=== PATIENT | male | born 1965 | race Caucasian/White ===

== ENCOUNTER 2021-02-22 13:24 | Inpatient (IN) ==
[2021-02-22] MEDS ORDERED: Naloxone 0.4 MG/ML INJ IVP PRN (22:49)
[2021-02-22] MEDS: 0.9 % Sodium Chloride 1,000 ML IVC SCH (23:26)
[2021-02-23 00:49] LABS: Basophils # 0.1 K/mcL (0.0-0.2); Basophils % 0.4 %; Eosinophils # 0.6 K/mcL (0.0-0.6); Eosinophils % 4.6 %; Hematocrit 30.7 % (37.5-50.1); Hemoglobin 10.1 g/dL (12.9-16.9); Immature Granulocytes % 0.9 % (0-4); Lymphocytes % 7.3 %; Mean Corpuscular HGB Conc 32.9 g/dL (31.6-35.5); Mean Corpuscular Hemoglobin 32.7 pg (28.0-33.3); Mean Corpuscular Volume 99.4 fL (83.0-100.0); Mean Platelet Volume 11.5 fL (9.4-12.4); Monocytes # 1.7 K/mcL (0.0-1.3); Monocytes % 11.8 %; Neutrophils # 10.5 K/mcL (1.6-8.9); Platelet Count 144 K/mcL (140-400); Red Blood Count 3.09 M/mcL (4.19-5.50); Red Cell Distribution Width 15.1 % (11.5-14.5)
[2021-02-23 01:06] LABS: Albumin/Globulin Ratio 0.8 (1.1-2.2); Bilirubin,Total 0.5 mg/dL (0.3-1.0); Calcium 8.3 mg/dL (8.6-10.3); Globulin 3.7 g/dL (2.4-3.5); Magnesium 2.3 mg/dL (1.6-2.6); Potassium 3.9 mEq/L (3.5-5.1); Total Protein 6.7 g/dL (6.4-8.9)
[2021-02-23] MEDS: Nicotine 21 MG PATCH.TD24 TD SCH ×2 (03:37→09:39)
[2021-02-23] MEDS: 0.9 % Sodium Chloride 1,000 ML IVC SCH (03:41)
[2021-02-23 05:33] LABS: Hematocrit 31.2 % (37.5-50.1); Hemoglobin 10.1 g/dL (12.9-16.9); Mean Corpuscular HGB Conc 32.4 g/dL (31.6-35.5); Mean Corpuscular Hemoglobin 32.4 pg (28.0-33.3); Mean Platelet Volume 12.1 fL (9.4-12.4); Platelet Count 149 K/mcL (140-400); Red Blood Count 3.12 M/mcL (4.19-5.50); Red Cell Distribution Width 14.9 % (11.5-14.5); White Blood Count 13.2 K/mcL (4.3-11.1)
[2021-02-23 05:49] LABS: Calcium 8.1 mg/dL (8.6-10.3)
[2021-02-23] MEDS ORDERED: Clindamycin 900 MG/50 ML 900 MG/50 ML IV.SOLN IVPB SCH (06:00)
[2021-02-23] MEDS: Clindamycin 900 MG/50 ML 900 MG/50 ML IV.SOLN IVPB SCH ×2 (09:39→20:27)
[2021-02-23] MEDS: Ondansetron ODT 4 MG TAB.RAPDIS SL PRN ×2 (12:17→23:45)
[2021-02-23 14:35] LABS: Bilirubin,Urine Negative (Negative); Blood,Urine Large (Negative); Clarity,Urine Turbid (Clear); Color,Urine Light-Orange (Yellow); Glucose,Urine (UA) Normal (Normal); Ketones,Urine Negative (Negative); Leukocyte Esterase,Urine Large (Negative); Nitrite,Urine Negative (Negative); Protein,Urine 100 mg/dL (Neg-Trace); RBC,Urine TNTC per hpf (0-3); Specific Gravity,Urine 1.011 (1.010-1.025); Urobilinogen,Urine Normal (Normal); WBC,Urine TNTC per hpf (0-3)
[2021-02-23 15:04] LABS: Protein/Creatinine Ratio,Urine 3.28 mg/mg (0.00-0.20); Sodium, Urine 88.6 mEq/L
[2021-02-23] MEDS ORDERED: Perflutren Lipid Microsphere 1.3 ML in 0.9 % Sodium Chloride 8.7 ML IVP PRN (18:04)
[2021-02-23] MEDS ORDERED: *HR* Metoprolol 5 MG/5 ML VIAL IVP ONE (18:15)
[2021-02-23] MEDS ORDERED: Prochlorperazine 10 MG/2 ML VIAL IVP ONE (18:24)
[2021-02-24 03:20] LABS: Hematocrit 36.1 % (37.5-50.1); Mean Corpuscular HGB Conc 32.7 g/dL (31.6-35.5); Mean Corpuscular Hemoglobin 32.4 pg (28.0-33.3); Mean Corpuscular Volume 99.2 fL (83.0-100.0); Mean Platelet Volume 11.8 fL (9.4-12.4); Platelet Count 195 K/mcL (140-400); Red Blood Count 3.64 M/mcL (4.19-5.50); Red Cell Distribution Width 14.5 % (11.5-14.5); White Blood Count 16.7 K/mcL (4.3-11.1)
[2021-02-24 03:22] LABS: Hemoglobin 11.8 g/dL (12.9-16.9)
[2021-02-24] MEDS ORDERED: Prochlorperazine 10 MG/2 ML VIAL IVP ONE (03:31)
[2021-02-24 03:52] LABS: Calcium 8.9 mg/dL (8.6-10.3)
[2021-02-24 03:53] LABS: Phosphorous 5.1 mg/dL (2.7-4.5); Uric Acid 4.4 mg/dL (2.3-7.6)
[2021-02-24 04:06] LABS: Thyroid Stimulating Hormone 3.598 mcIU/mL (0.340-5.600)
[2021-02-24 04:07] LABS: Vitamin D 25 Hydroxy 37 ng/mL (30-80)
[2021-02-24 04:08] LABS: Vitamin B12 > 1500 pg/mL (250-1100)
[2021-02-24 05:09] LABS: Hepatitis B Surface Antigen Nonreactive (Nonreactive)
[2021-02-24 05:38] LABS: Hepatitis C Virus Antibody Nonreactive (Nonreactive)
[2021-02-24 05:39] LABS: Hepatitis A Antibody IgM Nonreactive (Nonreactive); Hepatitis B Core IgM Nonreactive (Nonreactive)
[2021-02-24] MEDS ORDERED: 0.9 % Sodium Chloride 1,000 ML ONE (08:02)
[2021-02-24] MEDS: Clindamycin 900 MG/50 ML 900 MG/50 ML IV.SOLN IVPB SCH (10:05)
[2021-02-24] MEDS: Nicotine 21 MG PATCH.TD24 TD SCH (10:06)
[2021-02-24] MEDS ORDERED: cefTRIAXone 1,000 MG in 0.9 % Sodium Chloride Mini Bag 100 ML IVPB SCH (14:00)
[2021-02-24] MEDS ORDERED: amLODIPine 5 MG TABLET PO SCH (14:00)
[2021-02-24] MEDS: Ondansetron ODT 4 MG TAB.RAPDIS SL PRN (15:24)
[2021-02-24] MEDS: *HR* Heparin 5,000 UNIT/ML VIAL SQ SCH (15:28)
[2021-02-24] MEDS: (Hydromorphone (Pf) [Hydromorphone Intrathecal Pump] TP SCH (15:33)
[2021-02-24] MEDS: Doxycycline 100 MG in 0.9 % Sodium Chloride Mini Bag 100 ML IVPB SCH (17:10)
[2021-02-24] MEDS: *HR* HYDROcodone/Acet 5/325 mg TABLET PO PRN (20:39)
[2021-02-24] MEDS: Melatonin 3 MG TABLET PO PRN (20:39)
[2021-02-25 02:00] LABS: Hematocrit 32.5 % (37.5-50.1); Hemoglobin 10.4 g/dL (12.9-16.9); Mean Corpuscular Hemoglobin 31.4 pg (28.0-33.3); Mean Corpuscular Volume 98.2 fL (83.0-100.0); Mean Platelet Volume 11.9 fL (9.4-12.4); Platelet Count 147 K/mcL (140-400); Red Blood Count 3.31 M/mcL (4.19-5.50); Red Cell Distribution Width 13.9 % (11.5-14.5); White Blood Count 13.2 K/mcL (4.3-11.1)
[2021-02-25 02:14] LABS: Calcium 8.4 mg/dL (8.6-10.3); Potassium 3.4 mEq/L (3.5-5.1)
[2021-02-25] MEDS: Prochlorperazine 10 MG/2 ML VIAL IVP PRN (02:18)
[2021-02-25] MEDS: *HR* Heparin 5,000 UNIT/ML VIAL SQ SCH ×2 (02:25→06:50)
[2021-02-25] MEDS: Doxycycline 100 MG in 0.9 % Sodium Chloride Mini Bag 100 ML IVPB SCH (05:25)
[2021-02-25] MEDS: ARIPiprazole 10 MG TABLET PO SCH (09:32)
[2021-02-25] MEDS: Nicotine 21 MG PATCH.TD24 TD SCH (09:32)
[2021-02-25] MEDS ORDERED: Sennosides/Docusate Sodium TABLET PO PRN (10:21)
[2021-02-25] MEDS: Sennosides/Docusate Sodium TABLET PO SCH ×3 (12:19→21:44)
[2021-02-25] MEDS: (Hydromorphone (Pf) [Hydromorphone Intrathecal Pump] TP SCH (12:20)
[2021-02-25] MEDS: Famotidine 20 MG/2 ML VIAL IVP SCH (16:44)
[2021-02-25] MEDS: Ondansetron ODT 4 MG TAB.RAPDIS SL PRN (21:35)
[2021-02-26] MEDS: Prochlorperazine 10 MG/2 ML VIAL IVP PRN ×2 (00:37→16:49)
[2021-02-26] MEDS: *HR* HYDROcodone/Acet 5/325 mg TABLET PO PRN ×2 (05:15→11:53)
[2021-02-26] MEDS: Melatonin 3 MG TABLET PO PRN (05:15)
[2021-02-26] MEDS: Famotidine 20 MG/2 ML VIAL IVP SCH (05:15)
[2021-02-26 06:25] LABS: Hematocrit 33.3 % (37.5-50.1); Hemoglobin 10.7 g/dL (12.9-16.9); Mean Corpuscular HGB Conc 32.1 g/dL (31.6-35.5); Mean Corpuscular Hemoglobin 31.9 pg (28.0-33.3); Mean Corpuscular Volume 99.4 fL (83.0-100.0); Mean Platelet Volume 12.4 fL (9.4-12.4); Platelet Count 155 K/mcL (140-400); Red Blood Count 3.35 M/mcL (4.19-5.50); Red Cell Distribution Width 13.6 % (11.5-14.5); White Blood Count 16.5 K/mcL (4.3-11.1)
[2021-02-26 06:52] LABS: Calcium 8.9 mg/dL (8.6-10.3); Potassium 3.6 mEq/L (3.5-5.1)
[2021-02-26] MEDS: Nicotine 21 MG PATCH.TD24 TD SCH (09:39)
[2021-02-26] MEDS: Sennosides/Docusate Sodium TABLET PO SCH ×2 (09:39→21:22)
[2021-02-26] MEDS: Acetaminophen 325 MG TABLET PO PRN (09:39)
[2021-02-26] MEDS: ARIPiprazole 10 MG TABLET PO SCH (09:39)
[2021-02-26] MEDS ORDERED: polyethylene glycoL 3350 17 GM POWD.PACK PO PRN (13:39)
[2021-02-26] MEDS: (Hydromorphone (Pf) [Hydromorphone Intrathecal Pump] TP SCH (15:02)
[2021-02-26] MEDS: Ondansetron ODT 4 MG TAB.RAPDIS SL PRN (15:05)
[2021-02-26] MEDS: diazePAM 10 MG TABLET PO SCH (21:22)
[2021-02-27] MEDS: Melatonin 3 MG TABLET PO PRN (03:39)
[2021-02-27] MEDS: *HR* HYDROcodone/Acet 5/325 mg TABLET PO PRN (03:39)
[2021-02-27 05:21] LABS: Basophils # 0.1 K/mcL (0.0-0.2); Basophils % 0.3 %; Eosinophils # 0.8 K/mcL (0.0-0.6); Eosinophils % 4.4 %; Hematocrit 34.2 % (37.5-50.1); Immature Granulocytes % 0.7 % (0-4); Lymphocytes # 1.4 K/mcL (0.6-4.6); Lymphocytes % 7.9 %; Mean Corpuscular HGB Conc 32.2 g/dL (31.6-35.5); Mean Corpuscular Hemoglobin 31.5 pg (28.0-33.3); Mean Platelet Volume 12.3 fL (9.4-12.4); Monocytes # 2.2 K/mcL (0.0-1.3); Neutrophils # 13.5 K/mcL (1.6-8.9); Platelet Count 172 K/mcL (140-400); Red Blood Count 3.49 M/mcL (4.19-5.50); Red Cell Distribution Width 13.3 % (11.5-14.5); Segmented Neutrophils % 74.7 %; White Blood Count 18.1 K/mcL (4.3-11.1)
[2021-02-27 05:36] LABS: Albumin 3.5 g/dL (3.5-5.7); Albumin/Globulin Ratio 0.9 (1.1-2.2); Bilirubin,Total 0.6 mg/dL (0.3-1.0); Calcium 8.8 mg/dL (8.6-10.3); Potassium 3.6 mEq/L (3.5-5.1); Total Protein 7.5 g/dL (6.4-8.9)
[2021-02-27] MEDS: Sennosides/Docusate Sodium TABLET PO SCH ×2 (07:33→20:42)
[2021-02-27] MEDS: Ondansetron ODT 4 MG TAB.RAPDIS SL PRN ×2 (07:33→20:42)
[2021-02-27] MEDS: diazePAM 10 MG TABLET PO SCH ×3 (07:33→20:42)
[2021-02-27] MEDS: ARIPiprazole 10 MG TABLET PO SCH (07:33)
[2021-02-27] MEDS: Nicotine 21 MG PATCH.TD24 TD SCH (07:37)
[2021-02-27] MEDS ORDERED: Famotidine 20 MG/2 ML VIAL IVP SCH (09:00)
[2021-02-27] MEDS: (Hydromorphone (Pf) [Hydromorphone Intrathecal Pump] TP SCH (14:16)
[2021-02-27 19:04] LABS: Basophils # 0.1 K/mcL (0.0-0.2); Basophils % 0.2 %; Eosinophils # 0.5 K/mcL (0.0-0.6); Eosinophils % 2.5 %; Hematocrit 37.2 % (37.5-50.1); Hemoglobin 11.7 g/dL (12.9-16.9); Lymphocytes # 1.7 K/mcL (0.6-4.6); Lymphocytes % 8.2 %; Mean Corpuscular HGB Conc 31.5 g/dL (31.6-35.5); Mean Corpuscular Hemoglobin 31.3 pg (28.0-33.3); Mean Corpuscular Volume 99.5 fL (83.0-100.0); Mean Platelet Volume 12.3 fL (9.4-12.4); Monocytes # 1.8 K/mcL (0.0-1.3); Monocytes % 8.5 %; Neutrophils # 16.5 K/mcL (1.6-8.9); Platelet Count 207 K/mcL (140-400); Red Blood Count 3.74 M/mcL (4.19-5.50); Red Cell Distribution Width 13.2 % (11.5-14.5); Segmented Neutrophils % 79.6 %; White Blood Count 20.8 K/mcL (4.3-11.1)
[2021-02-28] MEDS: Prochlorperazine 10 MG/2 ML VIAL IVP PRN (01:49)
[2021-02-28 03:41] LABS: Basophils # 0.1 K/mcL (0.0-0.2); Basophils % 0.3 %; Eosinophils # 0.6 K/mcL (0.0-0.6); Eosinophils % 3.5 %; Hematocrit 32.5 % (37.5-50.1); Hemoglobin 10.5 g/dL (12.9-16.9); Immature Granulocytes % 0.8 % (0-4); Lymphocytes # 1.4 K/mcL (0.6-4.6); Mean Corpuscular HGB Conc 32.3 g/dL (31.6-35.5); Mean Corpuscular Hemoglobin 31.8 pg (28.0-33.3); Mean Corpuscular Volume 98.5 fL (83.0-100.0); Mean Platelet Volume 12.5 fL (9.4-12.4); Monocytes % 11.2 %; Neutrophils # 13.6 K/mcL (1.6-8.9); Platelet Count 165 K/mcL (140-400); Red Cell Distribution Width 13.2 % (11.5-14.5); Segmented Neutrophils % 76.2 %; White Blood Count 17.9 K/mcL (4.3-11.1)
[2021-02-28 04:03] LABS: Potassium 3.9 mEq/L (3.5-5.1)
[2021-02-28 08:52] LABS: INR 1.3; Prothrombin Time 14.4 Seconds (9.4-12.1)
[2021-02-28 10:48] LABS: Source,Synovial Fluid Right Hip
[2021-02-28 11:23] LABS: Appearance,Synovial Fluid Hazy (Clear-Hazy); Color,Synovial Fluid Amber (Straw)
[2021-02-28] MEDS: Nicotine 21 MG PATCH.TD24 TD SCH (11:32)
[2021-02-28] MEDS: ARIPiprazole 10 MG TABLET PO SCH (11:32)
[2021-02-28] MEDS: Famotidine 20 MG TABLET PO SCH (11:32)
[2021-02-28] MEDS: Sennosides/Docusate Sodium TABLET PO SCH ×2 (11:32→20:54)
[2021-02-28] MEDS: diazePAM 10 MG TABLET PO SCH ×3 (11:33→20:54)
[2021-02-28] MEDS: *HR* HYDROcodone/Acet 5/325 mg TABLET PO PRN ×2 (17:13→23:07)
[2021-02-28] MEDS: (Hydromorphone (Pf) [Hydromorphone Intrathecal Pump] TP SCH (17:31)
[2021-02-28] MEDS: Acetaminophen 325 MG TABLET PO PRN (20:53)
[2021-02-28 22:32] LABS: Bilirubin,Urine Negative (Negative); Blood,Urine Moderate (Negative); Clarity,Urine Turbid (Clear); Color,Urine Light-Yellow (Yellow); Glucose,Urine (UA) Normal (Normal); Ketones,Urine Negative (Negative); Leukocyte Esterase,Urine Large (Negative); Mucus,Urine Few per lpf (None-Few); Nitrite,Urine Negative (Negative); Protein,Urine 70 mg/dL (Neg-Trace); RBC,Urine 50-100 per hpf (0-3); Specific Gravity,Urine 1.012 (1.010-1.025); Urobilinogen,Urine Normal (Normal); WBC,Urine 50-100 per hpf (0-3)
[2021-03-01] MEDS ORDERED: *HR* HYDROcodone/Acet 10/325 mg TABLET PO ONE (01:34)
[2021-03-01 06:12] LABS: Basophils # 0.1 K/mcL (0.0-0.2); Basophils % 0.3 %; Eosinophils # 0.5 K/mcL (0.0-0.6); Eosinophils % 2.5 %; Hemoglobin 10.6 g/dL (12.9-16.9); Immature Granulocytes % 0.8 % (0-4); Lymphocytes # 1.5 K/mcL (0.6-4.6); Lymphocytes % 7.3 %; Mean Corpuscular HGB Conc 32.1 g/dL (31.6-35.5); Mean Corpuscular Hemoglobin 31.5 pg (28.0-33.3); Mean Corpuscular Volume 98.2 fL (83.0-100.0); Mean Platelet Volume 12.4 fL (9.4-12.4); Monocytes # 2.2 K/mcL (0.0-1.3); Neutrophils # 15.6 K/mcL (1.6-8.9); Platelet Count 195 K/mcL (140-400); Red Blood Count 3.36 M/mcL (4.19-5.50); Red Cell Distribution Width 13.1 % (11.5-14.5); Segmented Neutrophils % 78.1 %
[2021-03-01 06:36] LABS: Calcium 9.1 mg/dL (8.6-10.3); Potassium 3.8 mEq/L (3.5-5.1)
[2021-03-01] MEDS: Nicotine 21 MG PATCH.TD24 TD SCH (09:06)
[2021-03-01] MEDS: diazePAM 10 MG TABLET PO SCH ×3 (09:06→21:20)
[2021-03-01] MEDS: *HR* HYDROcodone/Acet 5/325 mg TABLET PO PRN (09:06)
[2021-03-01] MEDS: ARIPiprazole 10 MG TABLET PO SCH (09:06)
[2021-03-01] MEDS: Sennosides/Docusate Sodium TABLET PO SCH ×2 (09:06→21:20)
[2021-03-01] MEDS: Famotidine 20 MG TABLET PO SCH (09:06)
[2021-03-01] MEDS: *HR* HYDROmorphone 2 MG TABLET PO PRN ×2 (11:38→23:37)
[2021-03-01] MEDS: (Hydromorphone (Pf) [Hydromorphone Intrathecal Pump] TP SCH (12:08)
[2021-03-01] MEDS: tiZANidine 4 MG TABLET PO SCH ×2 (14:38→21:19)
[2021-03-01] MEDS: Gabapentin 400 MG CAPSULE PO SCH ×2 (14:38→21:20)
[2021-03-01] MEDS: *HR* OxyCODONE/APAP 10/325 TABLET PO PRN (14:39)
[2021-03-01] MEDS: Topiramate 25 MG TABLET PO SCH (21:19)
[2021-03-02] MEDS: *HR* OxyCODONE/APAP 10/325 TABLET PO PRN ×3 (02:41→21:56)
[2021-03-02] MEDS: ARIPiprazole 10 MG TABLET PO SCH (07:37)
[2021-03-02] MEDS: *HR* HYDROcodone/Acet 5/325 mg TABLET PO PRN (07:37)
[2021-03-02] MEDS: Sennosides/Docusate Sodium TABLET PO SCH ×2 (07:37→20:20)
[2021-03-02] MEDS: Gabapentin 400 MG CAPSULE PO SCH ×3 (07:37→20:21)
[2021-03-02] MEDS: Cholecalciferol (D-3) 1,000 UNIT (25MCG) TABLET PO SCH (07:38)
[2021-03-02] MEDS: tiZANidine 4 MG TABLET PO SCH ×3 (07:38→20:21)
[2021-03-02] MEDS: Topiramate 25 MG TABLET PO SCH ×2 (07:38→20:21)
[2021-03-02] MEDS: diazePAM 10 MG TABLET PO SCH ×3 (07:38→20:21)
[2021-03-02] MEDS: Famotidine 20 MG TABLET PO SCH (07:38)
[2021-03-02] MEDS: Nicotine 21 MG PATCH.TD24 TD SCH (07:39)
[2021-03-02 07:46] LABS: Basophils # 0.1 K/mcL (0.0-0.2); Basophils % 0.3 %; Eosinophils # 0.8 K/mcL (0.0-0.6); Eosinophils % 4.2 %; Hemoglobin 10.5 g/dL (12.9-16.9); Immature Granulocytes % 0.6 % (0-4); Lymphocytes # 1.8 K/mcL (0.6-4.6); Mean Corpuscular HGB Conc 31.8 g/dL (31.6-35.5); Mean Corpuscular Hemoglobin 31.9 pg (28.0-33.3); Mean Corpuscular Volume 100.3 fL (83.0-100.0); Mean Platelet Volume 12.5 fL (9.4-12.4); Monocytes # 2.4 K/mcL (0.0-1.3); Monocytes % 12.1 %; Neutrophils # 14.8 K/mcL (1.6-8.9); Platelet Count 193 K/mcL (140-400); Red Blood Count 3.29 M/mcL (4.19-5.50); Red Cell Distribution Width 13.2 % (11.5-14.5); Segmented Neutrophils % 73.8 %
[2021-03-02 08:06] LABS: Calcium 8.6 mg/dL (8.6-10.3)
[2021-03-02] MEDS: *HR* HYDROmorphone 2 MG TABLET PO PRN ×2 (08:22→15:42)
[2021-03-02] MEDS: (Hydromorphone (Pf) [Hydromorphone Intrathecal Pump] TP SCH (13:15)
[2021-03-03] MEDS: *HR* HYDROcodone/Acet 5/325 mg TABLET PO PRN (02:38)
[2021-03-03 03:17] LABS: Basophils # 0.1 K/mcL (0.0-0.2); Basophils % 0.5 %; Eosinophils % 4.6 %; Hematocrit 31.3 % (37.5-50.1); Hemoglobin 9.9 g/dL (12.9-16.9); Immature Granulocytes % 0.7 % (0-4); Lymphocytes # 2.3 K/mcL (0.6-4.6); Lymphocytes % 10.6 %; Mean Corpuscular HGB Conc 31.6 g/dL (31.6-35.5); Mean Corpuscular Hemoglobin 31.7 pg (28.0-33.3); Mean Corpuscular Volume 100.3 fL (83.0-100.0); Mean Platelet Volume 12.6 fL (9.4-12.4); Monocytes # 2.5 K/mcL (0.0-1.3); Monocytes % 11.7 %; Neutrophils # 15.6 K/mcL (1.6-8.9); Platelet Count 228 K/mcL (140-400); Red Blood Count 3.12 M/mcL (4.19-5.50); Red Cell Distribution Width 13.2 % (11.5-14.5); Segmented Neutrophils % 71.9 %; White Blood Count 21.6 K/mcL (4.3-11.1)
[2021-03-03 03:33] LABS: Albumin 3.3 g/dL (3.5-5.7); Albumin/Globulin Ratio 0.9 (1.1-2.2); Bilirubin,Total 0.4 mg/dL (0.3-1.0); Calcium 8.6 mg/dL (8.6-10.3); Globulin 3.5 g/dL (2.4-3.5); Potassium 4.2 mEq/L (3.5-5.1); Total Protein 6.8 g/dL (6.4-8.9)
[2021-03-03] MEDS: *HR* OxyCODONE/APAP 10/325 TABLET PO PRN ×2 (05:03→16:50)
[2021-03-03] MEDS: Topiramate 25 MG TABLET PO SCH ×2 (09:54→21:06)
[2021-03-03] MEDS: Gabapentin 400 MG CAPSULE PO SCH (09:55)
[2021-03-03] MEDS: Sennosides/Docusate Sodium TABLET PO SCH ×2 (09:55→21:06)
[2021-03-03] MEDS: ARIPiprazole 10 MG TABLET PO SCH (09:55)
[2021-03-03] MEDS: Cholecalciferol (D-3) 1,000 UNIT (25MCG) TABLET PO SCH (09:55)
[2021-03-03] MEDS: diazePAM 10 MG TABLET PO SCH ×3 (09:55→21:06)
[2021-03-03] MEDS: Famotidine 20 MG TABLET PO SCH (09:56)
[2021-03-03] MEDS: Nicotine 21 MG PATCH.TD24 TD SCH (09:56)
[2021-03-03] MEDS: tiZANidine 4 MG TABLET PO SCH (09:56)
[2021-03-03] MEDS: Silver Sulfadiazine 50 GM TUBE TP SCH (09:59)
[2021-03-03] MEDS: *HR* HYDROmorphone 2 MG TABLET PO PRN ×2 (10:05→21:10)
[2021-03-03] MEDS ORDERED: tiZANidine 4 MG TABLET PO PRN (14:19)
[2021-03-03] MEDS: (Hydromorphone (Pf) [Hydromorphone Intrathecal Pump] TP SCH (16:46)
[2021-03-03] MEDS: Gabapentin 300 MG CAPSULE PO SCH ×2 (16:46→21:06)
[2021-03-03] MEDS: Melatonin 3 MG TABLET PO PRN (21:10)
[2021-03-04 00:34] LABS: Lambda Qnt Free Light Chains 41.31 mg/L (5.71-26.30)
[2021-03-04] MEDS: *HR* OxyCODONE/APAP 10/325 TABLET PO PRN ×2 (05:07→16:52)
[2021-03-04 05:19] LABS: Basophils # 0.1 K/mcL (0.0-0.2); Basophils % 0.2 %; Eosinophils # 0.6 K/mcL (0.0-0.6); Eosinophils % 2.7 %; Hematocrit 30.9 % (37.5-50.1); Immature Granulocytes % 0.6 % (0-4); Lymphocytes # 1.3 K/mcL (0.6-4.6); Lymphocytes % 5.6 %; Mean Corpuscular HGB Conc 32.4 g/dL (31.6-35.5); Mean Corpuscular Hemoglobin 33.2 pg (28.0-33.3); Mean Corpuscular Volume 102.7 fL (83.0-100.0); Mean Platelet Volume 12.4 fL (9.4-12.4); Monocytes # 2.4 K/mcL (0.0-1.3); Monocytes % 10.8 %; Neutrophils # 18.1 K/mcL (1.6-8.9); Platelet Count 233 K/mcL (140-400); Red Blood Count 3.01 M/mcL (4.19-5.50); Red Cell Distribution Width 13.2 % (11.5-14.5); Segmented Neutrophils % 80.1 %; White Blood Count 22.6 K/mcL (4.3-11.1)
[2021-03-04 05:38] LABS: Calcium 8.9 mg/dL (8.6-10.3); Potassium 4.4 mEq/L (3.5-5.1)
[2021-03-04] MEDS: Cholecalciferol (D-3) 1,000 UNIT (25MCG) TABLET PO SCH (08:57)
[2021-03-04] MEDS: Topiramate 25 MG TABLET PO SCH ×2 (08:57→21:09)
[2021-03-04] MEDS: Famotidine 20 MG TABLET PO SCH (08:58)
[2021-03-04] MEDS: Nicotine 21 MG PATCH.TD24 TD SCH (08:58)
[2021-03-04] MEDS: Sennosides/Docusate Sodium TABLET PO SCH ×2 (08:58→21:09)
[2021-03-04] MEDS: diazePAM 10 MG TABLET PO SCH ×3 (08:59→21:09)
[2021-03-04] MEDS: Gabapentin 300 MG CAPSULE PO SCH ×3 (08:59→21:08)
[2021-03-04] MEDS: ARIPiprazole 10 MG TABLET PO SCH (09:00)
[2021-03-04] MEDS: *HR* HYDROmorphone 2 MG TABLET PO PRN ×2 (09:09→21:09)
[2021-03-04 13:59] LABS: Kappa Qnt Free Light Chains 77.79 mg/L (3.30-19.40)
[2021-03-04 17:05] LABS: Estimated Average Glucose 103 mg/dl; Hemoglobin A1C 5.2 %
[2021-03-04] MEDS: Silver Sulfadiazine 50 GM TUBE TP SCH (18:59)
[2021-03-04] MEDS: (Hydromorphone (Pf) [Hydromorphone Intrathecal Pump] TP SCH (19:13)
[2021-03-05] MEDS: *HR* OxyCODONE/APAP 10/325 TABLET PO PRN ×2 (03:31→16:02)
[2021-03-05 04:55] LABS: Basophils # 0.1 K/mcL (0.0-0.2); Basophils % 0.3 %; Eosinophils # 0.7 K/mcL (0.0-0.6); Eosinophils % 3.5 %; Hematocrit 27.8 % (37.5-50.1); Immature Granulocytes % 0.5 % (0-4); Lymphocytes # 1.1 K/mcL (0.6-4.6); Lymphocytes % 5.3 %; Mean Corpuscular HGB Conc 32.4 g/dL (31.6-35.5); Mean Corpuscular Hemoglobin 32.6 pg (28.0-33.3); Mean Corpuscular Volume 100.7 fL (83.0-100.0); Mean Platelet Volume 12.6 fL (9.4-12.4); Monocytes # 2.2 K/mcL (0.0-1.3); Monocytes % 11.1 %; Platelet Count 215 K/mcL (140-400); Red Blood Count 2.76 M/mcL (4.19-5.50); Red Cell Distribution Width 13.1 % (11.5-14.5); Segmented Neutrophils % 79.3 %; White Blood Count 20.2 K/mcL (4.3-11.1)
[2021-03-05 05:16] LABS: Potassium 3.9 mEq/L (3.5-5.1)
[2021-03-05] MEDS: Cholecalciferol (D-3) 1,000 UNIT (25MCG) TABLET PO SCH (08:03)
[2021-03-05] MEDS: Famotidine 20 MG TABLET PO SCH (08:04)
[2021-03-05] MEDS: Topiramate 25 MG TABLET PO SCH ×2 (08:04→20:14)
[2021-03-05] MEDS: Gabapentin 300 MG CAPSULE PO SCH ×3 (08:04→20:14)
[2021-03-05] MEDS: diazePAM 10 MG TABLET PO SCH ×3 (08:04→20:14)
[2021-03-05] MEDS: Sennosides/Docusate Sodium TABLET PO SCH ×2 (08:04→20:13)
[2021-03-05] MEDS: Nicotine 21 MG PATCH.TD24 TD SCH (08:05)
[2021-03-05] MEDS: *HR* HYDROmorphone 2 MG TABLET PO PRN ×2 (08:05→20:14)
[2021-03-05] MEDS: ARIPiprazole 10 MG TABLET PO SCH (08:07)
[2021-03-05] MEDS: Silver Sulfadiazine 50 GM TUBE TP SCH (09:14)
[2021-03-05] MEDS: (Hydromorphone (Pf) [Hydromorphone Intrathecal Pump] TP SCH (13:46)
[2021-03-05] MEDS: Neosporin OINT 15 GM TUBE TP SCH (19:11)
[2021-03-05] MEDS: Melatonin 3 MG TABLET PO PRN (20:14)
[2021-03-06 00:10] LABS: Alpha 2 Globulin (PEP) 1.02 g/dL (0.48-1.05); Beta Globulin (PEP) 1.01 g/dL (0.48-1.10)
[2021-03-06] MEDS: *HR* OxyCODONE/APAP 10/325 TABLET PO PRN ×3 (00:42→21:01)
[2021-03-06 04:54] LABS: Basophils # 0.1 K/mcL (0.0-0.2); Basophils % 0.3 %; Eosinophils # 0.7 K/mcL (0.0-0.6); Eosinophils % 4.2 %; Hematocrit 28.4 % (37.5-50.1); Hemoglobin 8.9 g/dL (12.9-16.9); Immature Granulocytes % 0.6 % (0-4); Lymphocytes # 1.2 K/mcL (0.6-4.6); Lymphocytes % 7.5 %; Mean Corpuscular HGB Conc 31.3 g/dL (31.6-35.5); Mean Corpuscular Volume 102.2 fL (83.0-100.0); Mean Platelet Volume 12.3 fL (9.4-12.4); Monocytes # 1.9 K/mcL (0.0-1.3); Neutrophils # 11.9 K/mcL (1.6-8.9); Platelet Count 224 K/mcL (140-400); Red Blood Count 2.78 M/mcL (4.19-5.50); Red Cell Distribution Width 13.1 % (11.5-14.5); Segmented Neutrophils % 75.4 %; White Blood Count 15.8 K/mcL (4.3-11.1)
[2021-03-06 05:00] LABS: INR 1.2; Prothrombin Time 13.6 Seconds (9.4-12.1)
[2021-03-06 05:09] LABS: Calcium 9.2 mg/dL (8.6-10.3); Magnesium 1.5 mg/dL (1.6-2.6); Potassium 4.1 mEq/L (3.5-5.1)
[2021-03-06] MEDS: *HR* HYDROmorphone 2 MG TABLET PO PRN ×2 (05:20→18:05)
[2021-03-06 07:23] LABS: IFE Reflexed NOT DONE
[2021-03-06] MEDS: diazePAM 10 MG TABLET PO SCH ×3 (07:25→19:53)
[2021-03-06] MEDS: Nicotine 21 MG PATCH.TD24 TD SCH (07:25)
[2021-03-06] MEDS: Cholecalciferol (D-3) 1,000 UNIT (25MCG) TABLET PO SCH (07:25)
[2021-03-06] MEDS: Gabapentin 300 MG CAPSULE PO SCH ×3 (07:25→19:53)
[2021-03-06] MEDS: Famotidine 20 MG TABLET PO SCH (07:25)
[2021-03-06] MEDS: Topiramate 25 MG TABLET PO SCH ×2 (07:26→19:54)
[2021-03-06] MEDS: Silver Sulfadiazine 50 GM TUBE TP SCH (07:27)
[2021-03-06] MEDS: Sennosides/Docusate Sodium TABLET PO SCH ×2 (07:27→19:54)
[2021-03-06] MEDS: Neosporin OINT 15 GM TUBE TP SCH (07:28)
[2021-03-06] MEDS: ARIPiprazole 10 MG TABLET PO SCH (07:43)
[2021-03-06] MEDS: (Hydromorphone (Pf) [Hydromorphone Intrathecal Pump] TP SCH (14:16)
[2021-03-07 03:25] LABS: Basophils # 0.1 K/mcL (0.0-0.2); Basophils % 0.4 %; Eosinophils # 0.7 K/mcL (0.0-0.6); Eosinophils % 4.9 %; Hemoglobin 8.9 g/dL (12.9-16.9); Immature Granulocytes % 0.4 % (0-4); Lymphocytes # 1.4 K/mcL (0.6-4.6); Lymphocytes % 9.9 %; Mean Corpuscular Hemoglobin 33.1 pg (28.0-33.3); Mean Corpuscular Volume 100.4 fL (83.0-100.0); Mean Platelet Volume 12.3 fL (9.4-12.4); Monocytes # 1.8 K/mcL (0.0-1.3); Monocytes % 13.5 %; Neutrophils # 9.7 K/mcL (1.6-8.9); Platelet Count 253 K/mcL (140-400); Red Blood Count 2.69 M/mcL (4.19-5.50); Red Cell Distribution Width 13.1 % (11.5-14.5); Segmented Neutrophils % 70.9 %; White Blood Count 13.7 K/mcL (4.3-11.1)
[2021-03-07 03:41] LABS: Calcium 9.2 mg/dL (8.6-10.3); Magnesium 1.6 mg/dL (1.6-2.6); Potassium 4.1 mEq/L (3.5-5.1)
[2021-03-07] MEDS: *HR* OxyCODONE/APAP 10/325 TABLET PO PRN (03:52)
[2021-03-07] MEDS: diazePAM 10 MG TABLET PO SCH ×3 (08:04→21:16)
[2021-03-07] MEDS: Gabapentin 300 MG CAPSULE PO SCH ×3 (08:04→21:16)
[2021-03-07] MEDS: ARIPiprazole 10 MG TABLET PO SCH (08:04)
[2021-03-07] MEDS: Famotidine 20 MG TABLET PO SCH (08:04)
[2021-03-07] MEDS: Topiramate 25 MG TABLET PO SCH ×2 (08:05→21:17)
[2021-03-07] MEDS: Sennosides/Docusate Sodium TABLET PO SCH ×2 (08:05→21:17)
[2021-03-07] MEDS: Cholecalciferol (D-3) 1,000 UNIT (25MCG) TABLET PO SCH (08:05)
[2021-03-07] MEDS: Silver Sulfadiazine 50 GM TUBE TP SCH (08:10)
[2021-03-07] MEDS: Neosporin OINT 15 GM TUBE TP SCH (08:10)
[2021-03-07] MEDS ORDERED: Bupivacaine/EPI 1:200k 0.25% 50 ML VIAL ONE (09:42)
[2021-03-07] MEDS: Nicotine 21 MG PATCH.TD24 TD SCH (10:20)
[2021-03-07] MEDS ORDERED: *HR* FentaNYL (PF) 100 MCG/2 ML VIAL ONE (10:27)
[2021-03-07] MEDS ORDERED: Ondansetron 4 MG/2 ML VIAL ONE (10:27)
[2021-03-07] MEDS ORDERED: *HR* Succinylcholine 200 MG/10 ML VIAL IVP ONE (10:27)
[2021-03-07] MEDS ORDERED: *HR* Midazolam HCl 2 MG/2 ML VIAL ONE (10:27)
[2021-03-07] MEDS ORDERED: Lidocaine -MPF 2% 5 ML VIAL ONE (10:27)
[2021-03-07] MEDS ORDERED: CeFAZolin Syr 2,000MG/20 ML 2,000 MG/20 ML SYRINGE IVPB ONE (11:07)
[2021-03-07] MEDS ORDERED: Ringers Solution, Lactated 1,000 ML IVC SCH ×2 (11:15→13:32)
[2021-03-07] MEDS ORDERED: Perflutren Lipid Microsphere 1.3 ML in 0.9 % Sodium Chloride 8.7 ML IVP PRN (13:32)
[2021-03-07] MEDS ORDERED: Acetaminophen 325 MG TABLET PO PRN (13:32)
[2021-03-07] MEDS ORDERED: Naloxone 0.4 MG/ML INJ IVP PRN (13:32)
[2021-03-07] MEDS ORDERED: Melatonin 3 MG TABLET PO PRN (13:32)
[2021-03-07] MEDS ORDERED: Ondansetron ODT 4 MG TAB.RAPDIS SL PRN (13:32)
[2021-03-07] MEDS ORDERED: tiZANidine 4 MG TABLET PO PRN (13:32)
[2021-03-07] MEDS ORDERED: *HR* HYDROmorphone 2 MG TABLET PO PRN (13:32)
[2021-03-07] MEDS ORDERED: polyethylene glycoL 3350 17 GM POWD.PACK PO PRN (13:32)
[2021-03-07] MEDS: Patient Taking Own Medication 1 EACH TP SCH (15:16)
[2021-03-08] MEDS: *HR* OxyCODONE/APAP 10/325 TABLET PO PRN ×2 (05:26→14:22)
[2021-03-08] MEDS: Nicotine 21 MG PATCH.TD24 TD SCH (08:55)
[2021-03-08] MEDS: diazePAM 10 MG TABLET PO SCH ×3 (08:56→21:31)
[2021-03-08] MEDS: Gabapentin 300 MG CAPSULE PO SCH ×3 (08:56→21:33)
[2021-03-08] MEDS: Topiramate 25 MG TABLET PO SCH ×2 (08:56→21:33)
[2021-03-08] MEDS: Sennosides/Docusate Sodium TABLET PO SCH ×2 (08:58→21:33)
[2021-03-08] MEDS: Famotidine 20 MG TABLET PO SCH (08:59)
[2021-03-08] MEDS: Magnesium Oxide 400 MG TABLET PO SCH (09:00)
[2021-03-08] MEDS: Cholecalciferol (D-3) 1,000 UNIT (25MCG) TABLET PO SCH (09:00)
[2021-03-08] MEDS: ARIPiprazole 10 MG TABLET PO SCH ×2 (09:00→09:19)
[2021-03-08] MEDS ORDERED: ARIPiprazole 10 MG TABLET PO SCH (09:00)
[2021-03-08 10:36] LABS: Basophils # 0.1 K/mcL (0.0-0.2); Basophils % 0.5 %; Eosinophils # 0.2 K/mcL (0.0-0.6); Eosinophils % 1.7 %; Hematocrit 27.9 % (37.5-50.1); Hemoglobin 8.7 g/dL (12.9-16.9); Immature Granulocytes % 0.5 % (0-4); Lymphocytes # 1.2 K/mcL (0.6-4.6); Lymphocytes % 8.8 %; Mean Corpuscular HGB Conc 31.2 g/dL (31.6-35.5); Mean Corpuscular Volume 102.6 fL (83.0-100.0); Mean Platelet Volume 11.9 fL (9.4-12.4); Monocytes # 1.5 K/mcL (0.0-1.3); Monocytes % 11.6 %; Neutrophils # 10.1 K/mcL (1.6-8.9); Platelet Count 241 K/mcL (140-400); Red Blood Count 2.72 M/mcL (4.19-5.50); Red Cell Distribution Width 13.1 % (11.5-14.5); Segmented Neutrophils % 76.9 %; White Blood Count 13.2 K/mcL (4.3-11.1)
[2021-03-08 10:51] LABS: Calcium 9.2 mg/dL (8.6-10.3); Magnesium 1.4 mg/dL (1.6-2.6); Potassium 4.1 mEq/L (3.5-5.1)
[2021-03-08] MEDS: Neosporin OINT 15 GM TUBE TP SCH (11:13)
[2021-03-08] MEDS: Silver Sulfadiazine 50 GM TUBE TP SCH (11:13)
[2021-03-08] MEDS: Patient Taking Own Medication 1 EACH TP SCH (13:53)
[2021-03-09] MEDS: *HR* OxyCODONE/APAP 10/325 TABLET PO PRN (03:38)
[2021-03-09 04:48] LABS: Basophils # 0.1 K/mcL (0.0-0.2); Basophils % 0.7 %; Eosinophils # 0.4 K/mcL (0.0-0.6); Hematocrit 26.9 % (37.5-50.1); Hemoglobin 8.8 g/dL (12.9-16.9); Immature Granulocytes % 0.5 % (0-4); Lymphocytes % 9.5 %; Mean Corpuscular HGB Conc 32.7 g/dL (31.6-35.5); Mean Corpuscular Volume 100.7 fL (83.0-100.0); Mean Platelet Volume 11.8 fL (9.4-12.4); Monocytes # 1.3 K/mcL (0.0-1.3); Monocytes % 11.8 %; Neutrophils # 7.8 K/mcL (1.6-8.9); Platelet Count 235 K/mcL (140-400); Red Blood Count 2.67 M/mcL (4.19-5.50); Segmented Neutrophils % 73.5 %; White Blood Count 10.6 K/mcL (4.3-11.1)
[2021-03-09 05:09] LABS: Calcium 9.1 mg/dL (8.6-10.3); Potassium 4.4 mEq/L (3.5-5.1)
[2021-03-09] MEDS: Cholecalciferol (D-3) 1,000 UNIT (25MCG) TABLET PO SCH (07:45)
[2021-03-09] MEDS: diazePAM 10 MG TABLET PO SCH ×3 (07:45→20:41)
[2021-03-09] MEDS: Magnesium Oxide 400 MG TABLET PO SCH (07:45)
[2021-03-09] MEDS: Sennosides/Docusate Sodium TABLET PO SCH ×2 (07:46→20:41)
[2021-03-09] MEDS: ARIPiprazole 10 MG TABLET PO SCH (07:46)
[2021-03-09] MEDS: Topiramate 25 MG TABLET PO SCH ×2 (07:46→20:41)
[2021-03-09] MEDS: Gabapentin 300 MG CAPSULE PO SCH ×3 (07:47→20:41)
[2021-03-09] MEDS: Aspirin Enteric Coated 325 MG Tablet PO SCH (07:47)
[2021-03-09] MEDS: Nicotine 21 MG PATCH.TD24 TD SCH (07:48)
[2021-03-09] MEDS: Famotidine 20 MG TABLET PO SCH (07:53)
[2021-03-09] MEDS: Neosporin OINT 15 GM TUBE TP SCH (09:19)
[2021-03-09] MEDS: Silver Sulfadiazine 50 GM TUBE TP SCH (09:20)
[2021-03-09] MEDS ORDERED: Acetaminophen 325 MG TABLET PO PRN (12:21)
[2021-03-09] MEDS: Patient Taking Own Medication 1 EACH TP SCH (15:09)
[2021-03-10] MEDS: (Hydromorphone (Pf) [Hydromorphone Intrathecal Pump] TP SCH (03:19)
[2021-03-10 05:44] LABS: Calcium 9.3 mg/dL (8.6-10.3); Potassium 4.5 mEq/L (3.5-5.1)
[2021-03-10] MEDS: Topiramate 25 MG TABLET PO SCH ×2 (07:19→20:49)
[2021-03-10] MEDS: Magnesium Oxide 400 MG TABLET PO SCH (07:19)
[2021-03-10] MEDS: Sennosides/Docusate Sodium TABLET PO SCH ×2 (07:19→20:49)
[2021-03-10] MEDS: *HR* OxyCODONE/APAP 10/325 TABLET PO PRN ×2 (07:20→20:53)
[2021-03-10] MEDS: Aspirin Enteric Coated 325 MG Tablet PO SCH (07:20)
[2021-03-10] MEDS: Gabapentin 300 MG CAPSULE PO SCH ×3 (07:20→20:50)
[2021-03-10] MEDS: diazePAM 10 MG TABLET PO SCH ×3 (07:20→20:50)
[2021-03-10] MEDS: Cholecalciferol (D-3) 1,000 UNIT (25MCG) TABLET PO SCH (07:20)
[2021-03-10] MEDS: Nicotine 21 MG PATCH.TD24 TD SCH (07:21)
[2021-03-10] MEDS: ARIPiprazole 10 MG TABLET PO SCH (07:27)
[2021-03-10] MEDS: Neosporin OINT 15 GM TUBE TP SCH (07:29)
[2021-03-10] MEDS: Silver Sulfadiazine 50 GM TUBE TP SCH (07:29)
[2021-03-10] MEDS: Famotidine 20 MG TABLET PO SCH (07:38)
[2021-03-10 08:47] LABS: Urine Collection Volume 3022 mL
[2021-03-10] MEDS: Patient Taking Own Medication 1 EACH TP SCH (12:07)
[2021-03-11 03:39] LABS: Basophils # 0.1 K/mcL (0.0-0.2); Basophils % 0.9 %; Eosinophils # 0.5 K/mcL (0.0-0.6); Eosinophils % 6.4 %; Hematocrit 26.5 % (37.5-50.1); Hemoglobin 8.6 g/dL (12.9-16.9); Immature Granulocytes % 0.7 % (0-4); Lymphocytes # 1.1 K/mcL (0.6-4.6); Mean Corpuscular HGB Conc 32.5 g/dL (31.6-35.5); Mean Corpuscular Hemoglobin 32.7 pg (28.0-33.3); Mean Corpuscular Volume 100.8 fL (83.0-100.0); Mean Platelet Volume 11.7 fL (9.4-12.4); Monocytes # 0.8 K/mcL (0.0-1.3); Monocytes % 10.2 %; Neutrophils # 5.5 K/mcL (1.6-8.9); Platelet Count 219 K/mcL (140-400); Red Blood Count 2.63 M/mcL (4.19-5.50); Red Cell Distribution Width 12.7 % (11.5-14.5); Segmented Neutrophils % 67.8 %; White Blood Count 8.1 K/mcL (4.3-11.1)
[2021-03-11 03:51] LABS: INR 1.2; Prothrombin Time 13.2 Seconds (9.4-12.1)
[2021-03-11 04:03] LABS: Calcium 8.7 mg/dL (8.6-10.3); Potassium 4.1 mEq/L (3.5-5.1)
[2021-03-11 06:35] VITALS: BP 114/67; PULSE 75; TEMP 98.7; O2SAT 95
[2021-03-11] MEDS: Cholecalciferol (D-3) 1,000 UNIT (25MCG) TABLET PO SCH (08:47)
[2021-03-11] MEDS: *HR* OxyCODONE/APAP 10/325 TABLET PO PRN (08:47)
[2021-03-11] MEDS: Aspirin Enteric Coated 325 MG Tablet PO SCH (08:47)
[2021-03-11] MEDS: Topiramate 25 MG TABLET PO SCH (08:47)
[2021-03-11] MEDS: diazePAM 10 MG TABLET PO SCH ×2 (08:48→16:13)
[2021-03-11] MEDS: Magnesium Oxide 400 MG TABLET PO SCH (08:48)
[2021-03-11] MEDS: Gabapentin 300 MG CAPSULE PO SCH ×2 (08:48→16:13)
[2021-03-11] MEDS: Sennosides/Docusate Sodium TABLET PO SCH (08:48)
[2021-03-11] MEDS: Nicotine 21 MG PATCH.TD24 TD SCH (08:49)
[2021-03-11] MEDS: Famotidine 20 MG TABLET PO SCH (08:49)
[2021-03-11] MEDS: ARIPiprazole 10 MG TABLET PO SCH (09:35)
[2021-03-11] MEDS: Neosporin OINT 15 GM TUBE TP SCH (14:09)
[2021-03-11] MEDS: Silver Sulfadiazine 50 GM TUBE TP SCH (14:09)
[2021-03-11] MEDS: Patient Taking Own Medication 1 EACH TP SCH (14:26)
[2021-03-11] MEDS ORDERED: Apixaban 5 MG TABLET PO SCH (15:23)
[2021-03-12] MEDS ORDERED: *HR* OxyCODONE/APAP 10/325 TABLET PO SCH (09:00)
== END 2021-03-11 17:30 | disposition home health service (06) | DRG 710 ==
LOC: 2ANU → SUATTDRO 21:13
PROVIDERS: ADMIT Family Medicine; ATTEND Internal Medicine
PROC: IRDRAIN (2021-02-28 12:00)

== ENCOUNTER 2021-04-04 06:06 | Observation (INO) ==
[2021-04-04 09:27] VITALS: BP 184/93; PULSE 66; TEMP 98.2; O2SAT 96
[2021-04-04 11:25] LABS: Basophils % 0.3 %; Eosinophils # 0.1 K/mcL (0.0-0.6); Eosinophils % 1.1 %; Hematocrit 37.7 % (37.5-50.1); Hemoglobin 11.7 g/dL (12.9-16.9); Immature Granulocytes % 0.4 % (0-4); Immature Reticulocyte % 24.2 % (11.0-38.0); Lymphocytes # 1.1 K/mcL (0.6-4.6); Lymphocytes % 10.4 %; Mean Corpuscular Hemoglobin 32.5 pg (28.0-33.3); Mean Corpuscular Volume 104.7 fL (83.0-100.0); Mean Platelet Volume 11.5 fL (9.4-12.4); Monocytes # 0.7 K/mcL (0.0-1.3); Monocytes % 6.5 %; Neutrophils # 8.6 K/mcL (1.6-8.9); Platelet Count 242 K/mcL (140-400); Red Cell Distribution Width 14.9 % (11.5-14.5); Reticulocyte % 2.8 % (1.6-2.8); Segmented Neutrophils % 81.3 %; White Blood Count 10.6 K/mcL (4.3-11.1)
[2021-04-04 11:32] LABS: INR 1.3; Prothrombin Time 14.6 Seconds (9.4-12.1)
[2021-04-04 11:41] LABS: Potassium 3.7 mEq/L (3.5-5.1)
[2021-04-04 11:42] LABS: Albumin 3.2 g/dL (3.5-5.7); Albumin/Globulin Ratio 0.8 (1.1-2.2); Bilirubin,Direct 0.2 mg/dL (0.0-0.2); Bilirubin,Indirect 0.2 mg/dL (0.0-1.0); Bilirubin,Total 0.4 mg/dL (0.3-1.0); Calcium 8.9 mg/dL (8.6-10.3); Globulin 4.1 g/dL (2.4-3.5); Magnesium 1.3 mg/dL (1.6-2.6); Phosphorous 3.8 mg/dL (2.7-4.5); Total Protein 7.3 g/dL (6.4-8.9)
[2021-04-04] MEDS ORDERED: diazePAM 10 MG TABLET PO PRN (11:46)
[2021-04-04] MEDS ORDERED: polyethylene glycoL 3350 17 GM POWD.PACK PO PRN (11:46)
[2021-04-04] MEDS ORDERED: ARIPiprazole 10 MG TABLET PO SCH (12:00)
[2021-04-04] MEDS ORDERED: *HR* OxyCODONE/APAP 5/325 TABLET PO PRN (13:11)
[2021-04-04] MEDS ORDERED: Ringers Solution, Lactated 1,000 ML IVC SCH (13:15)
[2021-04-04 14:19] LABS: Folate > 22.3 ng/mL (3.0-16.0); Vitamin B12 > 1500 pg/mL (250-1100)
[2021-04-04] MEDS ORDERED: tiZANidine 4 MG TABLET PO SCH (15:00)
[2021-04-04] MEDS ORDERED: Gabapentin 300 MG CAPSULE PO SCH (15:00)
[2021-04-04] MEDS ORDERED: Topiramate 25 MG TABLET PO SCH (21:00)
[2021-04-05] MEDS ORDERED: Famotidine 20 MG TABLET PO SCH (09:00)
== END 2021-04-04 18:23 | disposition home health service (06) ==
LOC: 2ANU
PROVIDERS: ADMIT Internal Medicine; ATTEND Internal Medicine

== ENCOUNTER 2022-01-20 13:09 | Inpatient (IN) ==
[2022-01-20] MEDS ORDERED: Acetaminophen 325 MG TABLET PO PRN (16:57)
[2022-01-20] MEDS ORDERED: Ondansetron 4 MG/2 ML VIAL IVP PRN (16:57)
[2022-01-20] MEDS ORDERED: Naloxone 0.4 MG/ML INJ IVP PRN (16:57)
[2022-01-20] MEDS ORDERED: cefTRIAXone 1,000 MG in 0.9 % Sodium Chloride 10 ML IVP ONE (17:01)
[2022-01-20] MEDS ORDERED: Ipratropium/Albuterol Neb 3 ML IH PRN (17:03)
[2022-01-20] MEDS ORDERED: Dextrose Gel 15 GM/37.5 ML TUBE PO PRN ×2 (17:03)
[2022-01-20] MEDS ORDERED: *HR* Dextrose 50 % in Water (Syg) 50 ML SYRINGE IVP PRN (17:03)
[2022-01-20] MEDS ORDERED: D5% in Water 1,000 ML IVC PRN (17:03)
[2022-01-20] MEDS ORDERED: 0.9 % Sodium Chloride 1,000 ML ONE (17:21)
[2022-01-20] MEDS ORDERED: 0.9 % Sodium Chloride 1,000 ML IVC SCH (17:30)
[2022-01-20 17:37] LABS: ABG Base Excess -6 mEq/L (-2 to 3); ABG HCO3 19 mEq/L (21-27); ABG Oxygen Saturation 90 % (95-98); ABG PCO2 37 mmHg (35-45); ABG PH 7.32 pH Units (7.32-7.45); ABG PO2 63 mmHg (85-104); ABG TCO2 20 mEq/L (20-26)
[2022-01-20] MEDS ORDERED: Magnesium Sulfate 1 GM/102 ML PIGGYBACK IVPB ONE (17:54)
[2022-01-20] MEDS: *HR* Heparin 5,000 UNIT/ML VIAL SQ SCH (18:15)
[2022-01-20 18:54] LABS: Albumin/Globulin Ratio 0.8 (1.1-2.2); Bilirubin,Total 0.3 mg/dL (0.3-1.0); Calcium 9.1 mg/dL (8.6-10.3); Globulin 3.6 g/dL (2.4-3.5); Potassium 5.7 mEq/L (3.5-5.1); Total Protein 6.6 g/dL (6.4-8.9)
[2022-01-20 19:04] LABS: Basophils % 0.3 %; Eosinophils # 0.3 K/mcL (0.0-0.6); Eosinophils % 2.6 %; Hematocrit 33.1 % (37.5-50.1); Hemoglobin 10.7 g/dL (12.9-16.9); Immature Granulocytes % 0.6 % (0-4); Lymphocytes # 0.3 K/mcL (0.6-4.6); Lymphocytes % 3.1 %; Mean Corpuscular HGB Conc 32.3 g/dL (31.6-35.5); Mean Corpuscular Hemoglobin 33.2 pg (28.0-33.3); Mean Corpuscular Volume 102.8 fL (83.0-100.0); Mean Platelet Volume 11.4 fL (9.4-12.4); Monocytes % 8.8 %; Neutrophils # 9.2 K/mcL (1.6-8.9); Platelet Count 154 K/mcL (140-400); Red Blood Count 3.22 M/mcL (4.19-5.50); Red Cell Distribution Width 17.2 % (11.5-14.5); Segmented Neutrophils % 84.6 %; White Blood Count 10.9 K/mcL (4.3-11.1)
[2022-01-20] MEDS: Sodium Bicarbonate 150 MEQ in 0.45 % Sodium Chloride 1,000 ML IVC SCH (22:09)
[2022-01-21 03:04] LABS: Magnesium 1.9 mg/dL (1.6-2.6); Phosphorous 6.8 mg/dL (2.7-4.5)
[2022-01-21] MEDS: *HR* Heparin 5,000 UNIT/ML VIAL SQ SCH ×2 (05:09→16:52)
[2022-01-21 06:36] LABS: Red Cell Distribution Width 17.2 % (11.5-14.5)
[2022-01-21 06:38] LABS: Basophils % 0.3 %; Eosinophils # 0.1 K/mcL (0.0-0.6); Hematocrit 32.4 % (37.5-50.1); Hemoglobin 10.6 g/dL (12.9-16.9); Immature Granulocytes % 0.6 % (0-4); Immature Platelets 5.8 % (1.1-6.1); Lymphocytes # 0.3 K/mcL (0.6-4.6); Lymphocytes % 3.2 %; Mean Corpuscular HGB Conc 32.7 g/dL (31.6-35.5); Mean Corpuscular Hemoglobin 33.2 pg (28.0-33.3); Mean Corpuscular Volume 101.6 fL (83.0-100.0); Mean Platelet Volume 11.5 fL (9.4-12.4); Monocytes % 9.8 %; Neutrophils # 8.6 K/mcL (1.6-8.9); Platelet Count 129 K/mcL (140-400); Red Blood Count 3.19 M/mcL (4.19-5.50); Segmented Neutrophils % 85.1 %; White Blood Count 10.1 K/mcL (4.3-11.1)
[2022-01-21 07:00] LABS: Calcium 8.5 mg/dL (8.6-10.3); Potassium 5.1 mEq/L (3.5-5.1)
[2022-01-21] MEDS: cefTRIAXone 1,000 MG in 0.9 % Sodium Chloride 10 ML IVP SCH (09:59)
[2022-01-21] MEDS: Insulin LISPRO 300 UNITS/3 ML VIAL SUBQ SCH ×2 (09:59→16:51)
[2022-01-21] MEDS: Sodium Bicarbonate 150 MEQ in 0.45 % Sodium Chloride 1,000 ML IVC SCH (10:28)
[2022-01-21 12:05] LABS: Acetaminophen < 10 mcg/mL (10-20); Salicylate < 2.5 mg/dL (15.0-30.0)
[2022-01-21 14:08] LABS: % Iron Saturation 19 % (20-55); Iron 45 mcg/dL (65-175); Transferrin 172 mg/dL (203-362)
[2022-01-21] MEDS ORDERED: *HR* HYDROmorphone 4 MG TABLET PO PRN (14:21)
[2022-01-21 14:22] LABS: Ferritin 581 ng/mL (20-250)
[2022-01-21 14:28] LABS: Folate 10.7 ng/mL (3.0-16.0)
[2022-01-21 15:02] LABS: Bacteria,Urine Few per hpf (None-Few); Bilirubin,Urine Negative (Negative); Blood,Urine Large (Negative); Clarity,Urine Clear (Clear); Color,Urine Colorless (Yellow); Glucose,Urine (UA) 50 mg/dL (Normal); Ketones,Urine Negative (Negative); Leukocyte Esterase,Urine Negative (Negative); Mucus,Urine Few per lpf (None-Few); Nitrite,Urine Negative (Negative); PH,Urine 6.5 pH Units (5.0-8.0); Protein,Urine 100 mg/dL (Neg-Trace); Specific Gravity,Urine 1.011 (1.010-1.025); Urobilinogen,Urine Normal (Normal)
[2022-01-21 15:34] LABS: Amphetamine Screen,Urine Negative ng/mL (Cutoff=1000); Barbiturate Screen,Urine Negative ng/mL (Cutoff=200); Benzodiazepines Screen,Urine Positive ng/mL (Cutoff=200); Cannabinoid Screen,Urine Negative ng/mL (Cutoff = 50); Cocaine Screen,Urine Negative ng/mL (Cutoff= 300); Creatinine,Urine 37 mg/dL; Opiate Screen,Urine Negative ng/mL (Cutoff=300); Phencyclidine Screen,Urine Negative ng/mL (Cutoff=25); Sodium, Urine 66.2 mEq/L
[2022-01-21] MEDS: *HR* OxyCODONE/APAP 10/325 TABLET PO PRN (18:43)
[2022-01-21] MEDS: Sodium Bicarbonate 75 MEQ in 0.45 % Sodium Chloride 1,000 ML IVC SCH (20:56)
[2022-01-21] MEDS ORDERED: traZODone 50 MG TABLET PO SCH (21:00)
[2022-01-22] MEDS: *HR* OxyCODONE/APAP 10/325 TABLET PO PRN ×2 (00:42→15:50)
[2022-01-22] MEDS: *HR* Heparin 5,000 UNIT/ML VIAL SQ SCH ×3 (05:11→20:26)
[2022-01-22] MEDS: Sodium Bicarbonate 75 MEQ in 0.45 % Sodium Chloride 1,000 ML IVC SCH ×2 (07:02→08:25)
[2022-01-22 07:56] LABS: Magnesium 1.4 mg/dL (1.6-2.6); Phosphorous 5.1 mg/dL (2.7-4.5); Potassium 4.1 mEq/L (3.5-5.1)
[2022-01-22] MEDS: cefTRIAXone 1,000 MG in 0.9 % Sodium Chloride 10 ML IVP SCH (07:57)
[2022-01-22] MEDS: Ascorbic Acid 500 MG TABLET PO SCH (07:59)
[2022-01-22] MEDS: ARIPiprazole 10 MG TABLET PO SCH (07:59)
[2022-01-22] MEDS: Magnesium Oxide 400 MG TABLET PO SCH (07:59)
[2022-01-22] MEDS: Cyanocobalamin (B-12) 1,000 MCG TABLET PO SCH (07:59)
[2022-01-22] MEDS: Insulin LISPRO 300 UNITS/3 ML VIAL SUBQ SCH ×3 (08:00→16:38)
[2022-01-22 08:04] LABS: Basophils % 0.2 %; Eosinophils # 0.2 K/mcL (0.0-0.6); Eosinophils % 1.5 %; Hematocrit 28.4 % (37.5-50.1); Hemoglobin 9.3 g/dL (12.9-16.9); Immature Granulocytes % 0.6 % (0-4); Lymphocytes # 0.4 K/mcL (0.6-4.6); Mean Corpuscular HGB Conc 32.7 g/dL (31.6-35.5); Mean Corpuscular Hemoglobin 33.2 pg (28.0-33.3); Mean Corpuscular Volume 101.4 fL (83.0-100.0); Mean Platelet Volume 11.7 fL (9.4-12.4); Monocytes # 1.3 K/mcL (0.0-1.3); Monocytes % 13.1 %; Neutrophils # 7.9 K/mcL (1.6-8.9); Platelet Count 157 K/mcL (140-400); Segmented Neutrophils % 80.6 %; White Blood Count 9.8 K/mcL (4.3-11.1)
[2022-01-22] MEDS ORDERED: NON-FORMULARY MEDICATION 1 EACH EACH (Biotin 10,000 MCG Capsule) PO SCH (09:00)
[2022-01-22] MEDS: 0.9 % Sodium Chloride 1,000 ML IVC SCH (12:29)
[2022-01-22 14:01] LABS: Appearance,Synovial Fluid Bloody (Clear-Hazy); Color,Synovial Fluid Red (Straw)
[2022-01-22] MEDS: diazePAM 10 MG TABLET PO SCH ×2 (14:44→20:26)
[2022-01-23] MEDS: 0.9 % Sodium Chloride 1,000 ML IVC SCH ×2 (00:52→14:04)
[2022-01-23] MEDS: *HR* OxyCODONE/APAP 10/325 TABLET PO PRN ×2 (03:48→20:04)
[2022-01-23 04:26] LABS: Calcium 8.2 mg/dL (8.6-10.3); Magnesium 1.5 mg/dL (1.6-2.6); Phosphorous 4.5 mg/dL (2.7-4.5); Potassium 4.2 mEq/L (3.5-5.1)
[2022-01-23] MEDS: *HR* Heparin 5,000 UNIT/ML VIAL SQ SCH (05:49)
[2022-01-23] MEDS: cefTRIAXone 1,000 MG in 0.9 % Sodium Chloride 10 ML IVP SCH (07:41)
[2022-01-23] MEDS: ARIPiprazole 10 MG TABLET PO SCH (07:42)
[2022-01-23] MEDS: Ascorbic Acid 500 MG TABLET PO SCH (07:42)
[2022-01-23] MEDS: diazePAM 10 MG TABLET PO SCH ×3 (07:42→20:04)
[2022-01-23] MEDS: Cyanocobalamin (B-12) 1,000 MCG TABLET PO SCH (07:42)
[2022-01-23] MEDS: Magnesium Oxide 400 MG TABLET PO SCH (07:42)
[2022-01-23] MEDS: Insulin LISPRO 300 UNITS/3 ML VIAL SUBQ SCH ×3 (07:50→16:19)
[2022-01-23] MEDS ORDERED: (Rizatriptan Benzoate [Maxalt] 10 MG Tablet) PO PRN (10:18)
[2022-01-23] MEDS: Apixaban 5 MG TABLET PO SCH (20:04)
[2022-01-24] MEDS: *HR* OxyCODONE/APAP 10/325 TABLET PO PRN ×2 (03:14→21:31)
[2022-01-24] MEDS: 0.9 % Sodium Chloride 1,000 ML IVC SCH ×2 (03:15→16:42)
[2022-01-24] MEDS: Insulin LISPRO 300 UNITS/3 ML VIAL SUBQ SCH ×3 (09:23→21:32)
[2022-01-24] MEDS: Cholecalciferol (D-3) 1,000 UNIT (25MCG) TABLET PO SCH (09:36)
[2022-01-24] MEDS: Magnesium Oxide 400 MG TABLET PO SCH (09:37)
[2022-01-24] MEDS: Apixaban 5 MG TABLET PO SCH ×2 (09:37→21:31)
[2022-01-24] MEDS: Ascorbic Acid 500 MG TABLET PO SCH (09:37)
[2022-01-24] MEDS: diazePAM 10 MG TABLET PO SCH ×3 (09:37→21:31)
[2022-01-24] MEDS: amLODIPine 5 MG TABLET PO SCH (09:37)
[2022-01-24] MEDS: Cyanocobalamin (B-12) 1,000 MCG TABLET PO SCH (09:37)
[2022-01-24] MEDS: cefTRIAXone 1,000 MG in 0.9 % Sodium Chloride 10 ML IVP SCH (09:37)
[2022-01-24] MEDS: ARIPiprazole 10 MG TABLET PO SCH (09:37)
[2022-01-24 15:38] LABS: Calcium 8.2 mg/dL (8.6-10.3); Potassium 4.6 mEq/L (3.5-5.1)
[2022-01-25] MEDS: 0.9 % Sodium Chloride 1,000 ML IVC SCH (05:45)
[2022-01-25 06:40] LABS: Calcium 8.2 mg/dL (8.6-10.3); Magnesium 1.2 mg/dL (1.6-2.6); Phosphorous 3.6 mg/dL (2.7-4.5); Potassium 4.2 mEq/L (3.5-5.1)
[2022-01-25] MEDS: Insulin LISPRO 300 UNITS/3 ML VIAL SUBQ SCH ×3 (08:03→18:09)
[2022-01-25] MEDS: cefTRIAXone 1,000 MG in 0.9 % Sodium Chloride 10 ML IVP SCH (09:30)
[2022-01-25] MEDS: amLODIPine 5 MG TABLET PO SCH (09:34)
[2022-01-25] MEDS: Apixaban 5 MG TABLET PO SCH ×2 (09:34→20:49)
[2022-01-25] MEDS: Ascorbic Acid 500 MG TABLET PO SCH (09:34)
[2022-01-25] MEDS: ARIPiprazole 10 MG TABLET PO SCH (09:34)
[2022-01-25] MEDS: diazePAM 10 MG TABLET PO SCH ×3 (09:34→20:49)
[2022-01-25] MEDS: Magnesium Oxide 400 MG TABLET PO SCH (09:35)
[2022-01-25] MEDS: Cholecalciferol (D-3) 1,000 UNIT (25MCG) TABLET PO SCH (09:35)
[2022-01-25] MEDS: Cyanocobalamin (B-12) 1,000 MCG TABLET PO SCH (09:35)
[2022-01-25] MEDS: *HR* OxyCODONE/APAP 10/325 TABLET PO PRN ×2 (13:10→20:49)
[2022-01-26 06:36] LABS: Calcium 8.6 mg/dL (8.6-10.3); Magnesium 1.5 mg/dL (1.6-2.6); Phosphorous 3.7 mg/dL (2.7-4.5); Potassium 4.3 mEq/L (3.5-5.1)
[2022-01-26 07:41] VITALS: BP 155/76; PULSE 87; TEMP 98.8; O2SAT 97
[2022-01-26] MEDS: Insulin LISPRO 300 UNITS/3 ML VIAL SUBQ SCH (07:49)
[2022-01-26] MEDS: Cholecalciferol (D-3) 1,000 UNIT (25MCG) TABLET PO SCH (08:10)
[2022-01-26] MEDS: Cyanocobalamin (B-12) 1,000 MCG TABLET PO SCH (08:11)
[2022-01-26] MEDS: Ascorbic Acid 500 MG TABLET PO SCH (08:11)
[2022-01-26] MEDS: Magnesium Oxide 400 MG TABLET PO SCH (08:11)
[2022-01-26] MEDS: amLODIPine 5 MG TABLET PO SCH (08:11)
[2022-01-26] MEDS: ARIPiprazole 10 MG TABLET PO SCH (08:11)
[2022-01-26] MEDS: Apixaban 5 MG TABLET PO SCH (08:11)
[2022-01-26] MEDS: *HR* OxyCODONE/APAP 10/325 TABLET PO PRN (08:18)
[2022-01-26] MEDS: diazePAM 10 MG TABLET PO SCH (10:21)
== END 2022-01-26 13:51 | disposition home health service (06) | DRG 812 ==
LOC: 2NENU → SUATTDRO 16:31
PROVIDERS: ADMIT Internal Medicine; ATTEND Internal Medicine